=== PATIENT | female | born 1950 | race Caucasian/White ===

== ENCOUNTER 2019-09-27 00:23 | Outpatient (CLI) | payer MEDICARE, SELFPAY | END 2019-09-27 00:24 | disposition home or self-care (01) | LOC: ANHCOVIDDT 00:23 | PROVIDERS: PCP Family Medicine; Visit Provider Internal Medicine Gastroenterology | DX: Z01.818 Encounter for other preprocedural examination (principal); Z11.59 Encounter for screening for other viral diseases | CPT/HCPCS: 87635; U0003 ==

== ENCOUNTER 2019-10-11 00:18 | Outpatient (CLI) | payer MEDICARE, SELFPAY ==
[2019-10-11 18:00] LABS: SARS-CoV-2 RNA PCR Negative
== END 2019-10-11 00:19 | disposition home or self-care (01) ==
LOC: ANHCOVIDDT 00:18
PROVIDERS: PCP Family Medicine; Visit Provider Internal Medicine Gastroenterology
DX: Z01.812 Encounter for preprocedural laboratory examination (principal); Z20.828 Contact with and (suspected) exposure to other viral communicable diseases
CPT/HCPCS: 87635; C9803; U0003

== ENCOUNTER 2019-10-14 01:00 | Day surgery (SDC) | payer MEDICARE, SELFPAY ==
[2019-07-31 13:18] VITALS: BMI 24.5
[2019-09-25 12:59] VITALS: BMI 25.2
[2019-10-07 10:33] VITALS: BMI 25.2
[2019-10-14 09:34] VITALS: BP 131/76; PULSE 77; RESP 20; TEMP 36.2; O2SAT 97
[2019-10-14] MEDS: LACTATED RINGERS 1,000 ML 150 ML IV CONT (10:08)
--- NOTE | 2019-10-14 10:34 | WPDANESEPPF ---
Anes - Initial Pre Proc Eval Procedure: Operation Date: 10/14/19 11:00 Proposed Procedures p Esophagogastroduodenoscopy & Colonoscopy - Caleb Austin MD Date/Time: 10/14/19 10:34 Surgeon: Caleb Austin MD Pre Op Diagnosis: Rectal Bleeding/ Abdominal Pain Patient Data Age: 69 Gender: F Height: 5 ft 4 in Weight: 66.5 kg Last Vital Signs Temp 36.2 C L 10/14/19 09:34 Pulse 77 10/14/19 09:34 Resp 20 10/14/19 09:34 BP 131/76 10/14/19 09:34 Pulse Ox 97 10/14/19 09:34 Allergies Allergy/AdvReac Type Severity Reaction Status Date / Time cefaclor Allergy Severe hives and Verified 10/14/19 09:50 shortness of breath codeine AdvReac Unknown DISORIENTIO Verified 10/14/19 09:50 N/CONFUSION Home Medications Medication Instructions Recorded Confirmed Type aspirin 81 mg tablet,delayed 81 mg PO DAILY 05/26/19 09/25/19 History release alprazolam 0.75 mg PO TID PRN 07/31/19 09/25/19 History citalopram 40 mg PO QAM 07/31/19 10/14/19 History hyoscyamine sulfate 0.125 mg PO QID 07/31/19 09/25/19 History lansoprazole [Prevacid SoluTab] 30 mg PO BID 07/31/19 09/25/19 History levothyroxine 50 mcg PO QAM 07/31/19 10/14/19 History liothyronine [Cytomel] 5 mcg PO QAM 07/31/19 10/14/19 History metoprolol tartrate 150 mg PO QAM 07/31/19 10/14/19 History pravastatin 10 mg tablet 10 mg PO DAILY #30 tablet 09/23/19 10/14/19 Rx cyanocobalamin (vitamin B-12) 1,000 mcg IM WEEKLY 09/25/19 10/14/19 History Patient hx anesthesia problems: none Family hx anesthesia problems: none PMFSH Past Medical History Medical History Abdominal pain Anxiety Carcinoid tumor Cataracts, bilateral Colitis COPD (chronic obstructive pulmonary disease) Dementia Depression Diverticulitis Eczema Endometriosis GERD (gastroesophageal reflux disease) Hx of malignant carcinoid tumor Hypertension Hyponatremia IBS (irritable bowel syndrome) Low serum vitamin D Peripheral neuropathy Previous known suicide attempt Rectal bleeding Renal disease Smoker Weight loss Surgical History Surgical History H/O cataract removal with insertion of prosthetic lens H/O colonoscopy History of appendectomy History of hysterectomy Hx of colectomy Family History Family History Mother Hx of cardiomegaly Grandparent No problems noted. Sibling Cancer of unknown origin Sibling Cancer of unknown origin Sibling Cancer of unknown origin Sibling Cancer of unknown origin Social History Social History Smoking packs per day: 2 Smoking cigarettes per day: 40.0 Smoking status: Current every day smoker Alcohol intake: current Drinks per week: 8 Alcohol use details: Weekends Gender identity (if verbalized by the patient): Female Anes - Eval Final PreProcedure Day of Procedure 10/14/19 10:34 Patient weight: overweight Heart: regular rate and rhythm Lungs: decreased breath sounds Airway: Mallampati scale class II Neurological: alert and oriented Last oral intake: >/= 8 hours ASA classification: IV Emergent: no Anesthetic plan: proceed Anesthesia type and monitoring: general GIVS and standard monitoring Informed Consent: The patient's anesthetic plan and its attendant risks and benefits were discussed with the patient/family/POA. Questions were solicited and answers provided to the satisfaction of the patient/family/POA.
--- NOTE | 2019-10-14 10:48 | PM.HPGS ---
History of Present Illness History of Present Illness Consent: Risks, benefits, and alternatives have been discussed and questions answered. Patient agrees to proceed with procedure. 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 Intermittent rectal bleeding. Review of Systems Constitutional: Constitutional: Denies headache(s) and Denies weakness Eyes: Eyes: Denies blurry vision ENT: Reports Normal hearing present, Denies headache(s) and Denies neck pain Cardiovascular: Cardiovascular: Denies chest pain and Denies dyspnea Respiratory: Respiratory: Denies dyspnea Gastrointestinal: Gastrointestinal: Reports no additional gastrointestinal complaints Genitourinary: Genitourinary: Denies dysuria Musculoskeletal: Musculoskeletal: Denies neck pain Integumentary/Breasts: Skin/Breast: Denies dry skin Neurologic: Reports Normal hearing present, Denies headache(s) and Denies weakness Psychiatric: Psychiatric: Denies anxiety Endocrine: Endocrine: Denies change in body appearance Hematologic/Lymphatic: Hematologic/Lymphatic: Denies easy bleeding Allergic/Immunologic: Allergic/Immunologic: Denies urticaria PMFSH Past Medical History Medical History Abdominal pain Anxiety Carcinoid tumor Cataracts, bilateral Colitis COPD (chronic obstructive pulmonary disease) Dementia Depression Diverticulitis Eczema Endometriosis GERD (gastroesophageal reflux disease) Hx of malignant carcinoid tumor Hypertension Hyponatremia IBS (irritable bowel syndrome) Low serum vitamin D Peripheral neuropathy Previous known suicide attempt Rectal bleeding Renal disease Smoker Weight loss Surgical History Surgical History H/O cataract removal with insertion of prosthetic lens H/O colonoscopy History of appendectomy History of hysterectomy Hx of colectomy Family History Family History Mother Hx of cardiomegaly Grandparent No problems noted. Sibling Cancer of unknown origin Sibling Cancer of unknown origin Sibling Cancer of unknown origin Sibling Cancer of unknown origin Social History Social History Smoking packs per day: 2 Smoking cigarettes per day: 40.0 Smoking status: Current every day smoker Alcohol intake: current Drinks per week: 8 Alcohol use details: Weekends Gender identity (if verbalized by the patient): Female Meds Home Medications and Allergies Home Medications Medication Instructions Recorded Confirmed Type aspirin 81 mg tablet,delayed 81 mg PO DAILY 05/26/19 09/25/19 History release alprazolam 0.75 mg PO TID PRN 07/31/19 09/25/19 History citalopram 40 mg PO QAM 07/31/19 10/14/19 History hyoscyamine sulfate 0.125 mg PO QID 07/31/19 09/25/19 History lansoprazole [Prevacid SoluTab] 30 mg PO BID 07/31/19 09/25/19 History levothyroxine 50 mcg PO QAM 07/31/19 10/14/19 History liothyronine [Cytomel] 5 mcg PO QAM 07/31/19 10/14/19 History metoprolol tartrate 150 mg PO QAM 07/31/19 10/14/19 History pravastatin 10 mg tablet 10 mg PO DAILY #30 tablet 09/23/19 10/14/19 Rx cyanocobalamin (vitamin B-12) 1,000 mcg IM WEEKLY 09/25/19 10/14/19 History Allergies Allergy/AdvReac Type Severity Reaction Status Date / Time cefaclor Allergy Severe hives and Verified 10/14/19 09:50 shortness of breath codeine AdvReac Unknown DISORIENTIO Verified 10/14/19 09:50 N/CONFUSION Vital Signs Vital Signs - 24 hr 10/14/19 09:34 Temperature 97.1 F L Pulse
[2019-10-14 11:17] VITALS: BP 113/66; PULSE 69; RESP 30; O2SAT 97
[2019-10-14 11:27] VITALS: BP 120/69; PULSE 66; RESP 17; O2SAT 97
[2019-10-14 11:37] VITALS: BP 144/79; PULSE 70; RESP 22; O2SAT 99
== END 2019-10-14 11:54 | disposition home or self-care (01) ==
PROVIDERS: PCP Family Medicine; Visit Provider Internal Medicine Gastroenterology
PROC: 0DJ08ZZ Inspection of Upper Intestinal Tract, Via Natural or Artificial Opening Endoscopic (ICD-10-PCS; CPT 43235; principal; 2019-10-14 11:00)
DX: Z12.11 Encounter for screening for malignant neoplasm of colon (principal); K29.50 Unspecified chronic gastritis without bleeding; Z98.0 Intestinal bypass and anastomosis status; K57.30 Diverticulosis of large intestine without perforation or abscess without bleeding; K64.8 Other hemorrhoids; Z85.030 Personal history of malignant carcinoid tumor of large intestine; J44.9 Chronic obstructive pulmonary disease, unspecified; F41.8 Other specified anxiety disorders; K21.9 Gastro-esophageal reflux disease without esophagitis; I10 Essential (primary) hypertension; K58.9 Irritable bowel syndrome, unspecified; G62.9 Polyneuropathy, unspecified; E55.9 Vitamin D deficiency, unspecified; F17.210 Nicotine dependence, cigarettes, uncomplicated; Z79.82 Long term (current) use of aspirin
CPT/HCPCS: 43239; G0105; 87081; 87635; 88305; 88342; C9803; J2704; J7120; U0003

== ENCOUNTER 2019-11-18 15:08 | Outpatient (CLI) | payer MEDICARE, SELFPAY ==
--- NOTE | ~2019-11-18 | US_ITS ---
EXAMINATION: US venous doppler [facility] DATE: 11/18/2019 15:44 INDICATION: Lower limb pain. TECHNIQUE: Grayscale ultrasound images without and with compression and Doppler ultrasound images of the bilateral lower extremity veins were obtained. COMPARISON: None. FINDINGS: The visualized portions of right common femoral vein, profunda (deep) femoral vein, femoral vein, pop liteal vein, peroneal veins, posterior tibial veins, and greater saphenous vein outflow are patent. The visualized portions of left common femoral vein, profunda femoral vein, femoral vein, popliteal v ein, peroneal veins, posterior tibial veins, and greater saphenous vein outflow are patent. IMPRESSION: 1. No deep venous thrombosis. Reviewed, dictated and finalized at location A.
--- NOTE | ~2019-11-18 | CT_ITS ---
EXAMINATION: CTA chest PE protocol DATE: 11/18/2019 16:23 CDT INDICATION: Shortness of breath and cough TECHNIQUE: Computed tomographic angiography (CTA) of the chest was performed with 100 mL Omnipaque-35 0 intravenous contrast. The dose-length product was 255.14 mGy-cm. Maximum intensity projection 3D-re constructions of the aorta and other arteries were constructed by the technologist on a separate work station. Automated exposure control and iterative reconstruction technique were employed. COMPARISON: Pet/CT dated 10/10/2018 FINDINGS: The study is technically adequate without evidence for pulmonary embolism. Mild mediastinal lymphadenopathy unchanged, likely reactive. There is atherosclerosis of the aorta without aneurysm o r dissection. Heart size is normal. There is atherosclerosis of the coronary arteries. No significant pleural or pericardial effusion. There is a 1.4 cm low-density lesion of the left adrenal gland, lik jacki benign. Small hiatal hernia. There is biapical pleural thickening/scarring. Mild emphysema. No fo amy airspace consolidation. No endobronchial lesions. No pneumothorax. IMPRESSION: 1. No acute cardiopulmonary disease. No evidence for pulmonary embolism. Reviewed, dictated and finalized at location A.
[2019-11-18 15:53] LABS: Estimated Glomerular Filt Rate > 60
== END 2019-11-18 15:09 | disposition home or self-care (01) ==
PROVIDERS: PCP Family Medicine; Visit Provider Family Medicine
DX: R06.00 Dyspnea, unspecified (principal); R79.89 Other specified abnormal findings of blood chemistry; R06.02 Shortness of breath
CPT/HCPCS: 36415; 71275; 93970; Q9967

== ENCOUNTER 2019-12-24 08:29 | Outpatient (CLI) | payer MEDICARE, SELFPAY ==
--- NOTE | ~2019-12-24 | NM_ITS ---
EXAMINATION: NM alesha stress w perfusion DATE: 12/24/2019 11:03 INDICATION: Chest pain TECHNIQUE: Rest images were obtained following intravenous administration of 10.1 mCi Tc99m tetrofosm in (Myoview). The patient was infused intravenously with Lexiscan (Regadenoson). Then, 31.4 mCi Tc99m tetrofosmin (Myoview) was administered intravenously, and stress images were obtained. Data was rich nstructed into short axis and horizontal and vertical long axis SPECT images. Gated SPECT images were also obtained. COMPARISON: None. FINDINGS: There is no definite reversible or fixed perfusion abnormality to suggest ischemia or infar ction. There is normal left ventricular chamber size, wall motion and ejection fraction. Left ventr icular ejection fraction measures >70%. IMPRESSION: 1. Normal myocardial perfusion at rest and during stress. 2. Left ventricular ejection fraction measuring >70%. Reviewed, dictated and finalized at location A.
--- NOTE | 2019-12-24 09:16 | EST_ITS ---
Patient Info Name: Krystal Vanegas Age: 69 years : 1950 Gender: Female Ht: 64 in Wt: 147 lbs BSA: 1.75 m2 Exam Date: 12/24/2019 9:54 AM Exam Location: [facility] Stress Patient Status: Outpatient Admit Date: 12/24/2019 Staff Ordering Physician: Flex Leone DO Attending Provider: Flex Leone DO Exercise Technologist: Francisco Foote RDCS, RT Exercise Physician: Flex Leone DO Exam Type: CA stress alesha w NM Study Info A regadenoson stress test was performed. Summary 1. 1. Negative lexiscan stress test for ischemic ST changes by ECG criteria. 2. 2. Stable hemodynamics throughout the test. 3. 3. Nuclear scan to follow and will be reported separately. Please correlate with it. 4. 4. Patient informed of the above results. Protocol: Lexiscan Stress ECG Details Stage: REST Duration (min): 1 min : 30 sec HR (bpm): 66 SBP (mmHg): 129 DBP (mmHg): 71 Stage: REST Duration (min): 7 min : 26 sec HR (bpm): 67 SBP (mmHg): 129 DBP (mmHg): 71 Stage: STAGE 1 Duration (min): 0 min : 59 sec HR (bpm): 72 SBP (mmHg): 128 DBP (mmHg): 67 Stage: RECOVERY Duration (min): 1 min : 0 sec HR (bpm): 95 SBP (mmHg): 128 DBP (mmHg): 67 Stage: RECOVERY Duration (min): 2 min : 0 sec HR (bpm): 97 SBP (mmHg): 128 DBP (mmHg): 67 Stage: RECOVERY Duration (min): 3 min : 0 sec HR (bpm): 94 SBP (mmHg): 125 DBP (mmHg): 66 Stage: RECOVERY Duration (min): 3 min : 31 sec HR (bpm): 91 SBP (mmHg): 125 DBP (mmHg): 66 Rest HR: 67 bpm Peak HR: 97 bpm Rest Sys BP: 129 mmHg Peak Sys BP: 128 mmHg Max Pred HR: 151 bpm % Max Pred HR: 64 % Target HR: 128 bpm Max RPP: 12,416 bpm*mmHg Termination Reason: Completed protocol Cardiac Symptoms: Shortness of breath Total Time: 1 min : 0 sec Rest Stoll BP: 71 mmHg Peak Stoll BP: 67 mmHg Total Dose: 0.4 mg Resting ECG Sinus rhythm. Stress ECG No ST changes. Arrhythmias None. Report Signatures
== END 2019-12-24 08:30 | disposition home or self-care (01) ==
PROVIDERS: PCP Family Medicine; Visit Provider Internal Medicine Cardiovascular Disease
DX: R07.9 Chest pain, unspecified (principal)
CPT/HCPCS: 78452; 93017; A9502; J2785

== ENCOUNTER 2019-12-28 19:54 | Emergency (ER) | payer MEDICARE, SELFPAY ==
--- NOTE | ~2019-12-28 | CT_ITS ---
EXAMINATION: CT abdomen pelvis w con DATE: 12/28/2019 20:50 INDICATION: Abdominal pain, rectal bleeding. History of carcinoid tumor. TECHNIQUE: Computed tomography (CT) of the abdomen and pelvis was performed with 100 cc Omnipaque 350 intravenous contrast. Automated exposure control and iterative reconstruction technique were employe d. Exam dose: 358.09 mGy-cm total exam DLP. COMPARISON: 04/22/2019 CT abdomen pelvis and there is a: No using a are: Or pulmonary see this is just FINDINGS: The lung bases are clear. Normal heart size. No pericardial or pleural effusion. Probab le small calcified granuloma in left lower lobe. 2 cm lateral segment left hepatic lobe cyst. The liver is otherwise unremarkable. The gallbladder is unremarkable. No bile duct or pancreatic duct dilatation is detected. No pancreatic mass lesion or ca lcification. Normal splenic size. Nonspecific approximately 1 cm left adrenal nodule. The right adren al gland is unremarkable. Stable approximately 1.7 cm mass at the root of the mesentery, not significantly changed since 2018 No renal mass lesion or urinary tract calculus or hydroureteronephrosis. The urinary bladder is unrem arkable. Status post hysterectomy. There is diverticulosis of the splenic flexure of the colon. Status post right partial colectomy. There are fluid levels in the colon. No pneumatosis. No bowel wa ll thickening. There is extensive calcification of the abdominal aorta and aortic branches. No intraperitoneal or re troperitoneal or pelvic mass lesion or adenopathy or ascites. No suspicious osteolytic or osteoblastic lesions are noted. IMPRESSION: Fluid levels of colon; no bowel obstruction Status post right partial colon resection Mild colonic diverticulosis Stable approximately 1.7 cm partially calcified mass at the root of the mesentery consistent with his tory of carcinoid tumor, not significant change since 04/22/2019 Reviewed, dictated and finalized at Location A. Reviewed, dictated and finalized at location A. IMPRESSION: Fluid levels of colon; no bowel obstruction Status post right partial colon resection Mild colonic diverticulosis Stable approximately 1.7 cm partially calcified mass at the root of the mesente ry consistent with history of carcinoid tumor, not significant change since 02/2019
[2019-12-28 19:55] VITALS: BP 138/74; PULSE 86; RESP 16; TEMP 36.4; O2SAT 99
--- NOTE | 2019-12-28 20:18 | ED.GENADULT ---
HPI - General Adult General Chief complaint: GI Bleed Stated complaint: rectal bleeding Time Seen by Provider: 12/28/19 20:18 Source: patient Mode of arrival: ambulatory Limitations: no limitations History of Present Illness HPI narrative: Patient is a 69-year-old female with a history of gastritis, carcinoid tumor of the abdomen, hypothyroidism who presents for evaluation of rectal bleeding. Patient reports she has had intermittent rectal bleeding and abdominal pain over the past several months. Patient states she was diagnosed with carcinoid tumor, and has been followed by Dr. Tomlin, oncology at [facility]. Due to the small size of the tumor, patient is not currently on any chemotherapy. Patient states she has been seen by Dr. Wilkes for rectal bleeding, and has no cause identified. After speaking with her oncologist today regarding the bleeding, he prompted her to come to the emergency department for evaluation. Patient reports right-sided abdominal pain without fever, nausea or vomiting. She denies diarrhea, she does have a history of hemorrhoids, but states she has bright red blood that occurs with each bowel movement. She reports she does not strain to use the restroom. She is not on any anticoagulation other than a daily aspirin. Related Data Home Medications Medication Instructions Recorded Confirmed aspirin 81 mg tablet,delayed 81 mg PO DAILY 05/26/19 11/17/19 release alprazolam 0.75 mg PO TID PRN 07/31/19 11/17/19 citalopram 40 mg PO QAM 07/31/19 11/17/19 hyoscyamine sulfate 0.125 mg PO QID 07/31/19 11/17/19 levothyroxine 50 mcg PO QAM 07/31/19 11/17/19 cyanocobalamin (vitamin B-12) 1,000 mcg IM WEEKLY 09/25/19 11/17/19 metoprolol tartrate 100 mg tablet 100 mg PO BID tablet 11/17/19 11/17/19 tramadol mg 12/28/19 12/28/19 Allergies Allergy/AdvReac Type Severity Reaction Status Date / Time cefaclor Allergy Severe hives and Verified 12/28/19 20:11 shortness of breath codeine AdvReac Unknown DISORIENTIO Verified 12/28/19 20:11 N/CONFUSION Review of Systems Review of Systems: Narrative: CONSTITUTIONAL: Denies fever, chills, or sweats CARDIOVASCULAR: Denies chest pain, palpitations, or edema. RESPIRATORY: Denies cough or dyspnea. GASTROINTESTINAL: Reports abdominal pain, bright red rectal bleeding GENITOURINARY: Denies dysuria or hematuria. SKIN: Denies rash or itching. MUSCULOSKELETAL: Denies back pain, joint pain, or myalgia. NEUROLOGIC: Denies headache, numbness, or weakness. PSYCHIATRIC: Reports history of anxiety and depression [facility] Past Medical History Medical History Abdominal pain Anxiety Carcinoid tumor Cataracts, bilateral Colitis COPD (chronic obstructive pulmonary disease) Dementia Depression Diverticulitis Eczema Endometriosis GERD (gastroesophageal reflux disease) Helicobacter positive gastritis Hx of malignant carcinoid tumor Hypertension Hyponatremia IBS (irritable bowel syndrome) Low serum vitamin D Mesenteric mass Peripheral neuropathy Previous known suicide attempt Rectal bleeding Renal disease Smoker Traumatic closed fracture of distal clavicle with minimal displacement Weight loss Surgical History Surgical History H/O cataract removal with insertion of prosthetic lens H/O colonoscopy History of appendectomy History of hysterectomy Hx of colectomy Family History Family History Mother Hx of cardiomegaly Grandparent No problems noted. Sibling Cancer of unknown origin Sibling Cancer of unknown origin Sibling Cancer of unknown origin Sibling Cancer of unknown origin Social History Social History Smoking packs per day: 2 Smoking cigarettes per day: 40.0 Smoking status: Curr
[2019-12-28 20:24] LABS: Basophils Absolute Auto 0.1 K/mm3 (0.0-0.1); Basophils Percent Auto 1.1 % (0.2-1.2); Eosinophils Absolute Auto 0.4 K/mm3 (0-0.3); Eosinophils Percent Auto 7.3 % (0-4.4); Hematocrit 33.7 % (37.0-47.0); Hemoglobin 11.2 g/dL (12.0-15.0); Immature Granulocyte Absolute 0.01 K/mm3 (0.00-0.031); Immature Granulocyte Percent A 0.2 % (0-0.5); Lymphocytes Absolute Auto 1.18 K/mm3 (0.9-3.2); Lymphocytes Percent Auto 21.6 % (18.3-44.2); Mean Corpuscular HGB Conc 33.2 g/dl (32-36); Mean Corpuscular Hemoglobin 32.7 pg (26-34); Mean Corpuscular Volume 98.3 fl (80-100); Mean Platelet Volume 9.8 fl (7.4-10.4); Monocytes Absolute Auto 0.6 K/mm3 (0.1-0.6); Monocytes Percent Auto 10.1 % (2.6-8.5); Neutrophils Absolute Auto 3.3 K/mm3 (1.3-6.7); Neutrophils Percent Auto 59.7 % (45.5-73.1); Platelet Count Result 325 k/mm3 (150-375); Red Blood Count 3.43 M/mm3 (4.2-5.4); Red Cell Distribution Width 14.5 % (11.5-14.5); White Blood Count 5.5 K/mm3 (4.5-10.0)
[2019-12-28 20:31] LABS: INR 0.9; Prothrombin Time 12.3 Seconds (11.1-14.7)
[2019-12-28 20:32] LABS: Partial Thromboplastin Time 27.3 SECONDS (22.3-36.8)
[2019-12-28 20:33] LABS: Alanine Aminotransferase 18 U/L (4-35); Albumin Level 4.1 g/dL (3.5-5.1); Alkaline Phosphatase 98 U/L (38-126); Anion Gap 7 mmol/L (8-16); Aspartate Amino Transferase 28 U/L (14-36); Bilirubin,Total 0.2 mg/dL (0.2-1.3); Blood Urea Nitrogen 13 mg/dL (7-17); Carbon Dioxide 24 mmol/L (22-30); Chloride 99 mmol/L (98-107); Estimated Glomerular Filt Rate > 60; Glucose 103 mg/dL (65-105); Potassium 4.4 mmol/L (3.4-5.0); Sodium 130 mmol/L (137-145)
[2019-12-28] MEDS: SODIUM CHLORIDE 0.9% IV 500 ML 999 ML IV CONT (20:36)
[2019-12-28] MEDS: ONDANSETRON INJ 4 MG/2 ML VIAL IV PUSH (20:36)
[2019-12-28] MEDS: MORPHINE SULFATE 4 MG/ML INJ 2 MG IV PUSH (20:36)
[2019-12-28 20:42] LABS: Add Urine Microscopic? NO; Appearance Urine Clear (Clear); Bilirubin Urine Negative (Negative); Blood Urine Negative (Negative); Color Urine Straw (Yellow); Glucose Urine UA Negative (Negative); Ketones Urine Negative (Negative); Leukocyte Esterase Ur Negative LEU/UL (Negative); Nitrate Urine Negative (Negative); Protein Urine Negative (Negative); Specific Grav Ur 1.008 (1.001-1.035); Urobilinogen Urine Negative mg/dL (<2.0)
[2019-12-28 21:54] VITALS: BP 146/84; PULSE 88; RESP 14; O2SAT 98
== END 2019-12-28 22:59 | disposition home or self-care (01) ==
PROVIDERS: Emergency Provider Emergency Medicine; PCP Family Medicine
DX: K62.5 Hemorrhage of anus and rectum (principal); C7A.019 Malignant carcinoid tumor of the small intestine, unspecified portion; E03.9 Hypothyroidism, unspecified; Z79.82 Long term (current) use of aspirin; F41.9 Anxiety disorder, unspecified; J44.9 Chronic obstructive pulmonary disease, unspecified; F17.210 Nicotine dependence, cigarettes, uncomplicated; K21.9 Gastro-esophageal reflux disease without esophagitis; N80.9 Endometriosis, unspecified; I10 Essential (primary) hypertension; K58.9 Irritable bowel syndrome, unspecified; G62.9 Polyneuropathy, unspecified; N28.9 Disorder of kidney and ureter, unspecified; Z98.42 Cataract extraction status, left eye; Z98.41 Cataract extraction status, right eye; Z96.1 Presence of intraocular lens; Z90.49 Acquired absence of other specified parts of digestive tract
CPT/HCPCS: 36415; 74177; 80053; 81003; 85025; 85610; 85730; 86850; 86900; 86901; 96374; 96375; 99284; J0131; J2270; J2405; J7040; Q9967

== ENCOUNTER → 2019-12-29 15:31 | Outpatient (CLI) | payer MEDICARE, SELFPAY ==
--- NOTE | ~2019-12-29 | XR_ITS ---
EXAMINATION:XR_[id number]_CR DATE: 12/29/2019 15:40 INDICATION: Neck pain TECHNIQUE: AP, lateral and lateral swimmers views of the cervical spine are provided. COMPARISON: None FINDINGS: 2 mm anterolisthesis C3 on C4. Vertebral body heights are normal. Moderate disc height loss with mode rate right-sided and severe left-sided uncovertebral osteoarthritis at C4-C5, C5-C6 and C6-C7. Mild d isc height loss with mild uncovertebral osteoarthritis at C3-C4. Moderate to severe upper cervical pr edominant facet osteoarthritis. Odontoid appears intact with normal atlantoaxial interval. Prevertebr al soft tissues are normal. IMPRESSION: 1. Moderate to severe cervical spondylosis. Reviewed, dictated and finalized at location A.
== END ==
PROVIDERS: PCP Family Medicine; Visit Provider Family Medicine
DX: M47.892 Other spondylosis, cervical region (principal)
CPT/HCPCS: 72040

== ENCOUNTER 2020-07-29 09:54 | Outpatient (CLI) | payer MEDICARE, SELFPAY ==
[2020-07-29 10:10] LABS: Basophils Absolute Auto 0.1 K/mm3 (0.0-0.1); Basophils Percent Auto 1.4 % (0.2-1.2); Eosinophils Absolute Auto 0.3 K/mm3 (0-0.3); Hematocrit 32.2 % (37.0-47.0); Immature Granulocyte Absolute 0.01 K/mm3 (0.00-0.031); Immature Granulocyte Percent A 0.2 % (0-0.5); Lymphocytes Absolute Auto 1.14 K/mm3 (0.9-3.2); Lymphocytes Percent Auto 25.9 % (18.3-44.2); Mean Corpuscular HGB Conc 31.1 g/dl (32-36); Mean Corpuscular Hemoglobin 30.9 pg (26-34); Mean Corpuscular Volume 99.4 fl (80-100); Mean Platelet Volume 9.6 fl (7.4-10.4); Monocytes Absolute Auto 0.5 K/mm3 (0.1-0.6); Monocytes Percent Auto 12.2 % (2.6-8.5); Neutrophils Absolute Auto 2.4 K/mm3 (1.3-6.7); Neutrophils Percent Auto 53.3 % (45.5-73.1); Platelet Count Result 359 k/mm3 (150-375); Red Blood Count 3.24 M/mm3 (4.2-5.4); Red Cell Distribution Width 17.3 % (11.5-14.5); White Blood Count 4.4 K/mm3 (4.5-10.0)
[2020-07-29 17:06] LABS: Vitamin D 25 Hydroxy 32.3 ng/mL
[2020-07-29 17:34] LABS: Thyroid Stimulating Hormone 0.842 uIU/mL (0.465-4.680)
[2020-07-29 18:22] LABS: Folic Acid > 20.0 ng/mL (2.76->20)
== END 2020-07-29 09:55 | disposition home or self-care (01) ==
LOC: ANHLAB 09:55
PROVIDERS: PCP Family Medicine; Visit Provider Family Medicine
DX: E03.9 Hypothyroidism, unspecified (principal); E53.8 Deficiency of other specified B group vitamins; E87.1 Hypo-osmolality and hyponatremia; R89.9 Unspecified abnormal finding in specimens from other organs, systems and tissues; C7A.029 Malignant carcinoid tumor of the large intestine, unspecified portion; R79.89 Other specified abnormal findings of blood chemistry; D64.9 Anemia, unspecified
CPT/HCPCS: 36415; 82306; 82607; 82746; 84443; 85025

== ENCOUNTER 2021-02-07 14:16 | Outpatient (CLI) | payer MEDICARE, SELFPAY ==
--- NOTE | ~2021-02-07 | US_ITS ---
EXAMINATION: US art doppler w press LE BI DATE: 02/07/2021 15:06 INDICATION: Left lower limb claudication TECHNIQUE: Segmental pressures and plethysmographic and Doppler waveforms of the brachial and lower e xtremity arteries were obtained. COMPARISON: None. FINDINGS: Right and left brachial artery pressures of 143 mm Hg and 161 mm Hg, respectively, are concordant (no rmal difference <= 30 mmHg). The right and left high-thigh pressure indices are 1.01 and 0.79, respec tively (normal > 1.2). The right ankle-brachial index (MELO) is 0.95 (normal >= 0.9-1). The right great toe-brachial index (T BI) is 0.53 (normal >= 0.6-0.8). The right lower extremity segmental pressure gradients are increased between the arteries at the right ankle and the right [id number] popliteal artery (normal gradie nts <= 20-30 mmHg between adjacent levels on the same leg or the same levels on the two legs). Arteri al waveforms are biphasic with brisk systolic upstrokes throughout. The left MELO is 0.69. The left TBI is 0.44. The left lower extremity segmental pressure gradients are increased between the left dorsalis pedis artery and the left [id number]-[id number] popliteal artery and be tween the left high thigh, above and [id number]-[id number] popliteal and dorsalis pedis arteries relative to the corresponding arteries in the contralateral right lower limb. Arterial waveforms are biphasic wi th brisk systolic upstrokes throughout. IMPRESSION: 1. Arterial occlusive disease to the bilateral lower limbs with mildly decreased right high thigh, an kle brachial and toe brachial indices and moderately decreased left high thigh, ankle brachial and to e brachial indices. Reviewed, dictated and finalized at location A. IMPRESSION: 1. Arterial occlusive disease to the bilateral lower limbs with mildly decrease d right high thigh, ankle brachial and toe brachial indices and moderately decr eased left high thigh, ankle brachial and toe brachial indices.
== END 2021-02-07 14:17 | disposition home or self-care (01) ==
LOC: ANHIMG 14:21
PROVIDERS: PCP Family Medicine; Visit Provider Orthopaedic Surgery
DX: I70.212 Atherosclerosis of native arteries of extremities with intermittent claudication, left leg (principal)
CPT/HCPCS: 93923

== ENCOUNTER 2022-01-03 00:53 | Day surgery (SDC) | payer MEDICARE, SELFPAY ==
[2021-12-29 12:44] VITALS: BMI 19.6
[2022-01-03 09:00] VITALS: BP 148/86; PULSE 98; RESP 18; TEMP 36.7; O2SAT 98; BMI 18.6
[2022-01-03] MEDS: LACTATED RINGERS 1,000 ML 150 ML IV CONT (09:25)
--- NOTE | 2022-01-03 09:45 | WPDANESEPPF ---
Anes - Initial Pre Proc Eval Procedure: Operation Date: 01/03/22 10:30 Proposed Procedures p Esophagogastroduodenoscopy & Colonoscopy - Caleb Austin MD Date/Time: 01/03/22 09:45 Surgeon: Caleb Austin MD Pre Op Diagnosis: nausea, vomiting, abnor. ct scan, carcinoid tumor Patient Data Age: 71 Gender: F Height: 1.63 m Weight: 49.3 kg Last Vital Signs Temp 98.0 F 01/03/22 09:00 Pulse 98 01/03/22 09:00 Resp 18 01/03/22 09:00 BP 148/86 H 01/03/22 09:00 Pulse Ox 98 01/03/22 09:00 O2 Del Method Room Air 01/03/22 09:00 Allergies Allergy/AdvReac Type Severity Reaction Status Date / Time cefaclor Allergy Severe hives and Verified 01/03/22 09:10 shortness of breath codeine AdvReac Unknown DISORIENTIO Verified 01/03/22 09:10 N/CONFUSION Home Medications Medication Instructions Recorded Confirmed Type aspirin 81 mg tablet,delayed 81 mg PO DAILY 05/26/19 01/03/22 History release (Adult Low Dose Aspirin) hyoscyamine sulfate 0.125 mg tablet 0.125 mg PO QID 07/31/19 01/03/22 History ipratropium 0.5 mg-albuterol 3 mg 3 ml inhalation Q6H PRN copd #90 mL 03/02/20 01/03/22 Rx (2.5 mg base)/3 mL nebulization soln acetaminophen 325 mg tablet 325 mg PO Q6H PRN Pain 05/03/20 01/03/22 History hydrocortisone 2.5 % topical cream 1 applic topical BID PRN Rash 05/03/20 01/03/22 History lansoprazole 15 mg capsule,delayed 15 mg PO DAILY 05/03/20 01/03/22 History release lidocaine 5 % topical patch 2 patch topical DAILY 05/03/20 01/03/22 History ondansetron 4 mg disintegrating 4 mg PO Q8H 05/03/20 01/03/22 History tablet hydrocodone 5 mg-acetaminophen 325 1 tablet PO Q6H PRN pain #60 tabs 08/13/20 01/03/22 Rx mg tablet alprazolam 0.5 mg tablet 0.75 mg PO TID PRN Anxiety #45 tabs 08/16/20 01/03/22 Rx levothyroxine 50 mcg tablet 50 mcg PO QAM #30 tabs 11/16/20 01/03/22 Rx citalopram 20 mg tablet 20 mg PO DAILY #90 tabs 03/07/21 01/03/22 Rx sucralfate 100 mg/mL oral 1 g (10 mL) PO TID 1 month #900 mL 12/08/21 01/03/22 Rx suspension (Carafate) Patient hx anesthesia problems: none Family hx anesthesia problems: none Results Review: All pre-operative results and documents have been reviewed as part of the pre-operative evaluation. [facility] Past Medical History Medical History (Updated 12/08/21 @ 11:41 by Caleb Austin MD) Abdominal pain carcinoid Abdominal pain Anxiety Carcinoid tumor Cataracts, bilateral Colitis COPD (chronic obstructive pulmonary disease) Dementia Depression Diverticulitis Eczema Endometriosis GERD (gastroesophageal reflux disease) Helicobacter positive gastritis Hx of malignant carcinoid tumor Hypertension Hyponatremia IBS (irritable bowel syndrome) Low serum vitamin D Mesenteric mass Nausea and vomiting in adult Peripheral neuropathy Previous known suicide attempt Rectal bleeding Renal disease Smoker Traumatic closed fracture of distal clavicle with minimal displacement Weight loss Weight loss Surgical History Surgical History H/O cataract removal with insertion of prosthetic lens H/O colonoscopy History of appendectomy History of hysterectomy Hx of colectomy Family History Family History Mother Hx of cardiomegaly Grandparent No problems noted. Sibling Cancer of unknown origin Sibling Cancer of unknown origin Sibling Cancer of unknown origin Sibling Cancer of unknown origin Social History Social History Smoking packs per day: 1 Smoking cigarettes per day: 20.0 Years smoked: 40 Smoking pack-years: 40.00 Smoking status: Current every day smoker Tobacco type: cigarettes Alcohol intake: former Drinks per week: 8 Alcohol use details: no drinkin
--- NOTE | 2022-01-03 10:31 | WPDHPUPDATE1 ---
History and Physical Update Update Date/Time: 01/03/22 10:31 History and Physical has been reviewed, including an updated exam of the patient. There are NO changes in the patient's condition. Risks, benefits, and alternatives have been discussed and questions answered. Patient agrees to proceed with procedure.
--- NOTE | 2022-01-03 10:39 | SUR.OPER ---
EGD start 1034 end 1036, Colon start 1043 end 1052
[2022-01-03 10:54] VITALS: BP 150/88; PULSE 84; RESP 16; O2SAT 100
[2022-01-03 11:04] VITALS: BP 173/91; PULSE 81; RESP 15; O2SAT 99
[2022-01-03 11:13] VITALS: BP 187/95; PULSE 82; RESP 16; O2SAT 100
--- NOTE | 2022-01-03 12:02 | SUR.PHASEII ---
Dr Wilkes informed of positive H. Pylori result.
== END 2022-01-03 11:24 | disposition home or self-care (01) ==
PROVIDERS: PCP Family Medicine; Visit Provider Internal Medicine Gastroenterology
PROC: 0DJ08ZZ Inspection of Upper Intestinal Tract, Via Natural or Artificial Opening Endoscopic (ICD-10-PCS; CPT 43235; principal; 2022-01-03 10:30)
DX: R10.9 Unspecified abdominal pain (principal); Z98.0 Intestinal bypass and anastomosis status; K63.89 Other specified diseases of intestine; K64.8 Other hemorrhoids; R11.2 Nausea with vomiting, unspecified; J44.9 Chronic obstructive pulmonary disease, unspecified; F32.A Depression, unspecified; L30.9 Dermatitis, unspecified; I10 Essential (primary) hypertension; E87.1 Hypo-osmolality and hyponatremia; K58.9 Irritable bowel syndrome, unspecified; N80.9 Endometriosis, unspecified; G62.9 Polyneuropathy, unspecified; F17.210 Nicotine dependence, cigarettes, uncomplicated; Z79.82 Long term (current) use of aspirin; Z79.01 Long term (current) use of anticoagulants; E03.9 Hypothyroidism, unspecified; D3A.00 Benign carcinoid tumor of unspecified site; K21.9 Gastro-esophageal reflux disease without esophagitis; R63.4 Abnormal weight loss; K29.50 Unspecified chronic gastritis without bleeding; E55.9 Vitamin D deficiency, unspecified
CPT/HCPCS: 45378; 87081; 88305; 88342; J2704; J7120